=== PATIENT | female | born 1965 | race Two or more races ===

== ENCOUNTER 2022-05-25 18:43 | Emergency (ER) | payer MEDICAID ==
[2022-05-25] MEDS ORDERED: HYDROmorphone 1 MG/ML CARPUJECT IM STA (19:05)
--- NOTE | 2022-05-25 19:08 | ED Physician Documentation ---
PD HPI LOWER EXT INJURY - Stated complaint Stated Complaint: RT LEG INJ - Chief complaint Chief Complaint: Trauma Ext - History obtained from History obtained from: Patient - History of Present Illness PD HPI LOW EXT INJURY LOCATION: Lower leg, Ankle Type of injury: Fall Where injury occurred: Street Timing - onset: How many hours ago (1) Timing - duration: Hours (1) Timing - details: Abrupt onset Pain level max: 10 Pain level now: 10 Improved by: Rest Worsened by: Moving, Palpating Associated symptoms: No: Weakness, Numbness, Tingling, Swelling Recently seen: Not recently seen - Additional information Additional information: Patient is a 56-year-old female who presents to the emergency department with a right ankle injury. She states she was out walking her dog when she tripped and fell injuring the right lower leg. Worse with movement, nothing makes it better. She has noticed swelling to the area. There is no numbness or tingling. Review of Systems Constitutional: denies: Fever, Chills Respiratory: denies: Cough Skin: denies: Rash Musculoskeletal: denies: Neck pain, Back pain Neurologic: denies: Headache PD PAST MEDICAL HISTORY - Past Medical History Past Medical History: No - Past Surgical History Past Surgical History: No - Present Medications Home Medications: Ambulatory Orders Medication Instructions Recorded Confirmed Ondansetron Odt [Zofran] 4 mg TL Q6H PRN #10 tablet 05/25/22 Oxycodone HCl/Acetaminophen 1 - 2 each PO Q6H PRN #14 tablet 05/25/22 [Percocet 5-325 mg Tablet] - Allergies Allergies/Adverse Reactions: Allergies Allergy/AdvReac Type Severity Reaction Status Date / Time No Known Drug Allergies Allergy Verified 05/25/22 18:48 - Living Situation Living Situation: reports: With family Living Arrangement: reports: At home - Social History Does the pt smoke?: No Does the pt have substance abuse?: No - Family History Family history: reports: Non contributory PD ED PE NORMAL - Vitals Vital signs reviewed: Yes - General General: Alert and oriented X 3, No acute distress - HEENT HEENT: Atraumatic, PERRL, Moist mucous membranes - Neck Neck: Supple, no meningeal sign, No bony TTP - Cardiac Cardiac: RRR, Strong equal pulses - Respiratory Respiratory: No respiratory distress, Clear bilaterally - Abdomen Abdomen: Soft, Non tender, Non distended - Back Back: No spinal TTP - Derm Derm: Warm and dry - Extremities Extremities: Other (Tender to palpation over the distal right tibia. Swelling to the ankle and lower leg. Neurovascularly intact. Good distal pulses and brisk cap refill.) - Neuro Neuro: Alert and oriented X 3 - Psych Psych: Normal mood, Normal affect Results - Vitals Vitals: Vital Signs - 24 hr 05/25/22 05/25/22 18:48 20:09 Temperature 36.5 C 36.5 C Heart Rate 100 88 Respiratory 22 15 Rate Blood Pressure 150/100 H 141/89 H O2 Saturation 99 95 Oxygen O2 Source Room air - Rads (name of study) Right ankle x-ray Radiology: Final report received, EMP read contemporaneously, See rad report Procedures - Splint (location) R LE Splint applied by: Physician, Other (ortho PA, Yanira Tinoco) Type of splint: Fiberglass, Short leg, Posterior, Stirrup Other: Patient tolerated well, No complications, Neurovascular intact PD MEDICAL DECISION MAKING - ED course Complexity details: reviewed results, re-evaluated patient, considered differential, d/w patient ED course: 56-year-old female with a spiral fracture of the distal tibia as well as fractures of the lateral and posterior malleoli. Also has a fibular fracture. Placed in a short leg posterior splint with stirrups. Pain well controlled. Neurovascularly intact after splint application. Discussed the case with orthopedics, Dr. Neville, he will see in the office tomorrow or Wednesday and plan for operative repair. The splint application was assisted by jayshree Doyle. Patient counseled regarding signs and symptoms for which I believe and urgent re-evaluation would be necessary. Patient with good understanding of and agreement to plan and is comfortable going home at this time This document was made in part using voice recognition software. While efforts are made to proofread this document, sound alike and grammatical errors may occur. IMPRESSION: Spiral fracture at the distal tibia. Fracture at the lateral and posterior malleoli. Suspect Shepard A fracture. Departure - Departure Disposition: 01 Home, Self Care Clinical Impression: Tibia/fibula fracture Qualifiers: Encounter type: initial encounter Fracture type: closed Laterality: right Qualified Code(s): S82.201A - Unspecified fracture of shaft of right tibia, i nitial encounter for closed fracture Condition: Good Instructions: ED Fx Lower Ext Follow-Up: Han Neville MD [Provider Admit Priv/Credential] - Tomorrow Yanira Tinoco PA-C [Provider Admit Priv/Credential] - Tomorrow Prescriptions: Oxycodone HCl/Acetaminophen [Percocet 5-325 mg Tablet] 1 - 2 each PO Q6H PRN #14 tablet PRN Reason: pain Ondansetron Odt [Zofran] 4 mg TL Q6H PRN #10 tablet PRN Reason: Nausea / Vomiting Comments: Your medications were sent to [facility] in [place]. Please call the orthopedic office tomorrow at 8 AM for an appointment. Yanira saw you tonight, she is the orthopedics PA. I spoke with Dr. Neville as well. Tell the clinic they wanted you seen tomorrow. Please return if you worsen. Keep the leg elevated. You can apply ice as well. Return for numbness, tingling or any other new or worrisome changes. IMPRESSION: Spiral fracture at the distal tibia. Fracture at the lateral and posterior malleoli. Suspect Shepard A fracture. I am prescribing a short course of narcotic pain medication for you. These are potentially dangerous and addictive medications that should be used carefully. These medications may constipate you. Take an blit-tpz-etvyvsc stool softener (docusate) twice daily with plenty of water while taking these medications. If you go 24 hours without a bowel movement, take ejzi-pcz-tikssgf miralax, per package instructions. Do not drink or drive while taking these medications. If you received narcotic or sedating medications while in the emergency department, do not drive for 24 hours. Store this medication in a safe, secure place and out of reach of children. It is a violation of federal law to give or sell this medication to another person or to use in a manner other than prescribed. The ED will not refill narcotic prescriptions, including prescriptions lost or stolen. To dispose of unwanted medications: 1. [facility] [address] in [place] has a medication drop box. They accept prescription medications (in pill form) Wednesday through Wednesday 9:00 a.m. to 5:00 p.m. 2. The [facility] accepts prescription medications (in pill form only) for disposal year round. Call for more information. 3. Contact the [facility] for the next [facility] sponsored prescription drug collection event. , [phone], or [phone]; Discharge Date/Time: 05/25/22 20:26
[2022-05-25] MEDS ORDERED: HYDROmorphone 1 MG/ML CARPUJECT IVP STA (19:28)
[2022-05-25] MEDS ORDERED: KETOROLAC 30 MG/ML VIAL IVP STA (19:28)
--- NOTE | 2022-05-25 19:41 | XRAY Report ---
PROCEDURE: Ankle 3 View RT INDICATIONS: Trauma TECHNIQUE: 3 views of the ankle were acquired. COMPARISON: None. FINDINGS: Bones: Spiral fracture at the distal tibia with mild displacement. Fracture at the lateral malleolus with mild displacement. Posterior malleolus fracture. No dislocations. There is narrowing at the lat eral aspect of the ankle mortise. No suspicious bony lesions. Small plantar calcaneal spur. Soft tissues: Small tibiotalar joint effusion. IMPRESSION: Spiral fracture at the distal tibia. Fracture at the lateral and posterior malleoli. Suspect Shepard A fracture. Reviewed by: Dwight Zarate MD on 05/25/2022 7:39 PM PDT Approved by: Dwight Zarate MD on 05/25/2022 7:39 PM PDT Station ID: [id number]
[2022-05-25] MEDS ORDERED: ONDANSETRON 4 MG/2 ML VIAL IVP STA (19:54)
[2022-05-25] MEDS ORDERED: oxyCODONE/ACET 5/325 Prepack 4 PO STA (19:54)
[2022-05-25 20:11] VITALS: BP 141/89
== END 2022-05-25 20:26 | disposition home or self-care (01) ==
LOC: ED 18:43
DX: S82.201A Unspecified fracture of shaft of right tibia, initial encounter for closed fracture (principal); W01.0XXA Fall on same level from slipping, tripping and stumbling without subsequent striking against object, initial encounter; Y93.K1 Activity, walking an animal
CPT/HCPCS: 73610; 96372; 96374; 96375; 99282; 99283; J1170

== ENCOUNTER 2022-05-26 10:54 | Outpatient (CLI) | payer SELFPAY ==
[2022-05-26 11:13] LABS: HCT - HEMATOCRIT 41.8 % (37.0-47.0); HGB - HEMOGLOBIN 14.4 g/dL (12.0-16.0); MEAN CORPUSCULAR HGB CONC 34.4 g/dL (32.0-36.0); MEAN CORPUSCULAR VOLUME 87.1 fL (81.0-99.0); MEAN PLATELET VOLUME 12.2 fL (7.9-10.8); RED BLOOD COUNT 4.8 10^6/uL (4.20-5.40); RED CELL DISTRIBUTION WIDTH 13.5 % (12.0-15.0); WHITE BLOOD COUNT 11.7 x10^3/uL (4.8-10.8)
[2022-05-26 11:18] LABS: CALCIUM 9.3 mg/dL (8.5-10.3); CREATININE 0.7 mg/dL (0.4-1.0); POTASSIUM 4.3 mmol/L (3.5-5.0)
[2022-05-26 14:11] LABS: ESTIMATED AVERAGE GLUCOSE 143 mg/dL (70-100); HEMOGLOBIN A1c% 6.6 % (4.27-6.07)
== END 2022-05-26 10:55 | disposition home or self-care (01) ==
LOC: LAB 10:54
PROVIDERS: ATTEND Orthopaedic Surgery
DX: Z01.812 Encounter for preprocedural laboratory examination (principal); E11.9 Type 2 diabetes mellitus without complications
CPT/HCPCS: 36415; 80048; 83036; 85027

== ENCOUNTER 2022-05-27 06:10 | Day surgery (SDC) | payer MEDICAID ==
[2022-05-27] MEDS ORDERED: LACTATED RINGERS 1,000 ML IV ONE ×2 (06:17→13:31)
[2022-05-27] MEDS ORDERED: CELECOXIB 100 MG CAPSULE PO ONE (06:27)
[2022-05-27] MEDS ORDERED: CEFAZOLIN SODIUM IN 0.9 % NACL 2 GM/50 ML BAG IV ONE (06:27)
[2022-05-27] MEDS ORDERED: ACETAMINOPHEN 500 MG TABLET PO ONE (06:27)
[2022-05-27] MEDS ORDERED: LIDOCAINE-MPF 2% 5 ML VIAL ONE (07:12)
[2022-05-27] MEDS ORDERED: ROPIVACAINE 0.5% PF 20 ML AMPULE ONE (07:12)
[2022-05-27] MEDS ORDERED: PROPOFOL 200 MG/20 ML VIAL IVP ONE ×2 (07:12→13:26)
[2022-05-27] MEDS ORDERED: ONDANSETRON 4 MG/2 ML VIAL ONE (07:13)
[2022-05-27] MEDS ORDERED: DEXAMETHASONE 4 MG/ML VIAL ONE ×2 (07:13→08:48)
[2022-05-27] MEDS ORDERED: MIDAZOLAM 2 MG/2 ML VIAL ONE (07:16)
[2022-05-27] MEDS ORDERED: fentaNYL 100 MCG/2 ML VIAL ONE ×2 (07:16→08:14)
--- NOTE | 2022-05-27 07:20 | ANESTHESIA ---
Pre-Anesthesia VS, & Labs - Diagnosis displaced fracture, right tibia with lateral and posterior malleoli - Procedure ORIF right ankle, intramedullary angeline, tibia Vital Signs: Temp Pulse Resp BP Pulse Ox 37.2 C 85 16 169/101 H 94 05/27/22 06:28 05/27/22 06:28 05/27/22 06:28 05/27/22 06:28 05/27/22 06:28 Height: 5 ft 2 in Weight (kg): 100 kg Body Mass Index: 40.3 BMI Classification: Morbidly Obese - NPO >8 hours - Is Patient ?: No - Lab Results Current Lab Results: Laboratory Tests 05/27/22 06:56: POC Whole Bld Glucose 157 H Home Medications and Allergies Home Medications: Ambulatory Orders Lisinopril/Hydrochlorothiazide [Zestoretic 10-12.5 mg Tablet] 1 tab PO DAILY 05/26/22 metFORMIN [Glucophage] 1 tab PO DAILY 05/26/22 traMADol [Ultram] 1 tab PO PRN PRN 05/26/22 Lisinopril/Hydrochlorothiazide [Zestoretic 10-12.5 mg Tablet] 1 tab PO DAILY 05/26/22 metFORMIN [Glucophage] 1 tab PO DAILY 05/26/22 traMADol [Ultram] 1 tab PO PRN PRN 05/26/22 Allergies/Adverse Reactions: Allergies Allergy/AdvReac Type Severity Reaction Status Date / Time No Known Drug Allergies Allergy Verified 05/25/22 18:48 Anes History & Medical History - Anesthetic History Anesthesia Complications: reports: No previous complications Family history of Anesthesia Complications: Denies Family history of Malignant Hyperthermia: Denies - Medical History Cardiovascular: reports: Hypertension, High cholesterol, [place] Pulmonary: reports: None Gastrointestinal: reports: GERD Urinary: reports: None Neuro: reports: None Musculoskeletal: reports: None Endocrine/Autoimmune: reports: Type 2 diabetes Blood Disorders: reports: Anemia Skin: reports: None Smoking Status: Never smoker Psychosocial: reports: No issues indicated History of Cancer?: No - Surgical History General: reports: Cholecystectomy Exam General: Alert, Oriented x3, Cooperative, No acute distress Dental: Poor dentition Mouth Openin Fingerbreadth Mallampati classification: III Thyromental Distance: less than 4 cm Mental/Cognitive Status: Alert/Oriented X3, Normal for patient Plan Anesthesia Type: General, Popliteal Block, Adductor Block Regional Block: Per Surgeon's request for Post Op pain control Consent for Procedure(s) Verified and Reviewed: Yes Code Status: Attempt Resuscitation ASA classification: 3-Severe systemic disease Is this case an emergency?: No
[2022-05-27] MEDS ORDERED: BUPIVACAINE 0.5% PF 30 ML VIAL ONE (07:34)
[2022-05-27] MEDS ORDERED: BACITRACIN ZINC OINT 1 PACKET TOP ONE (07:34)
[2022-05-27] MEDS ORDERED: VANCOMYCIN 1 GM VIAL ONE (07:34)
[2022-05-27] MEDS ORDERED: LIDOCAINE 2%-EPI 1:100000 20 ML MDV ONE (07:35)
[2022-05-27] MEDS ORDERED: NALOXONE 0.4 MG/ML VIAL IVP PRN (08:48)
[2022-05-27] MEDS ORDERED: MORPHINE 2 MG/ML CARPUJECT IVP PRN (08:48)
[2022-05-27] MEDS ORDERED: ONDANSETRON 4 MG/2 ML VIAL IVP PRN (08:48)
[2022-05-27] MEDS ORDERED: fentaNYL 100 MCG/2 ML VIAL IVP PRN (08:48)
[2022-05-27] MEDS ORDERED: ATROPINE ABBOJECT 1 MG/10 ML SYRINGE IVP PRN (08:48)
[2022-05-27] MEDS ORDERED: ePHEDrine 50 MG/ML VIAL IVP PRN (08:48)
[2022-05-27] MEDS ORDERED: METOCLOPRAMIDE 10 MG/2 ML VIAL IVP PRN (08:48)
[2022-05-27] MEDS ORDERED: HYDROmorphone 0.5 MG/0.5 ML SYRINGE IVP PRN (08:48)
[2022-05-27] MEDS ORDERED: LACTATED RINGERS 1,000 ML IV SCH (09:00)
[2022-05-27] MEDS ORDERED: ROCURONIUM 50 MG/5 ML VIAL ONE ×3 (10:43→13:26)
[2022-05-27] MEDS ORDERED: ePHEDrine 50 MG/ML VIAL IVP ONE (12:29)
[2022-05-27] MEDS ORDERED: ROPIVACAINE 0.2% PF 10 ML VIAL ONE (12:59)
[2022-05-27] MEDS ORDERED: ceFAZolin 1 GM VIAL ONE (13:02)
[2022-05-27] MEDS ORDERED: HYDROmorphone 1 MG/ML CARPUJECT ONE (13:05)
[2022-05-27] MEDS ORDERED: SUGAMMADEX 200 MG/2 ML VIAL IVP ONE (13:07)
--- NOTE | 2022-05-27 13:13 | OPERATIVE REPORT ---
Operative Report - General Procedure Date: 05/27/22 Planned Procedure: Open reduction internal fixation right ankle and intramedullary rodding right tibia Pre-Op Diagnosis: Bimalleolar fracture right ankle with displaced distal tibia fracture right Procedure Performed: 1. Closed, intramedullary rodding right tibia with static locking; [employer] titanium 10 x 30 mm nail with 3 distal locking screws and 2 proximal locking screws 2. Open reduction internal fixation lateral malleolus with [employer] lateral malleolar locking plate, 2.7 millimeter screws Post Op Diagnosis: Same as preoperative diagnosis - Procedure Note Primary Surgeon: Han Neville MD Secondary Surgeon: Yanira Tinoco PAC, Dave Baldwin PAC Anesthesia Technique: General ET tube, Regional block Estimated Blood Loss (mL): 150 Indications: This is a 56-year-old woman with a history of a recent fall 2 days ago walking her dog, tripped and fell with isolated injury to right leg. She has a history of obesity, yeast, hypertension and a possible past myocardial infarction. She is accompanied by her daughters who speak [place] well and are bilingual; the patient is from [place] and has minimal understanding of [place]. She is on metformin for her diabetes and she seems to be fairly well controlled by history. Her exam showed tenderness to the right lower leg and ankle, intact skin, 5 mm abrasion over fracture site region, unstable fracture, neurovascular intact. Her x-rays were abnormal and showed a distal third right tibia fracture with a lateral malleolar fracture, low and displaced. The posterior malleolus had a subtle cortical fracture without displacement. Findings: Spiral fracture distal third right tibia, closed injury associated with nondisplaced posterior malleolar fracture and displaced lateral malleolar fracture right ankle. The fracture of the distal third of the right tibia was unstable. There is no sign of compartment syndrome and her compartments were soft. Complications: None - Other Other Information/Narrative: The patient was brought to the operating room. She had received an adductor canal and popliteal block by anesthesia. General endotracheal anesthesia was performed. A pneumatic tourniquet was applied to the proximal right thigh over cast padding. The right leg was placed on a bone foam to help flex the knee. A bump was placed beneath the right hip to facilitate leg internal rotation. The right lower extremity was prepped and draped in a sterile manner in the usual fashion. A C arm image intensifier was utilized intermittently throughout the procedure and was covered with a sterile drape. A timeout procedure was performed by the entire operating room team and all were in agreement. The lateral malleolar fracture which was closed and displaced was stabilized first. The skin incision was longitudinal beginning just below the tip of the lateral malleolus and extending it proximally in a longitudinal fashion. A limited subperiosteal dissection was performed. The fracture of the lateral malleolus was very unstable. The tip of the lateral malleolus was reduced, held with a small bone clamp and then an intramedullary K wire was used to stabilize the fracture. A 2.7 mm [employer]hew locking lateral malleolar plate was applied and secured with locking screws distally and nonlocking screws proximally to obtain good fixation, alignment on x-ray. This portion of the procedure was performed under tourniquet control with a thigh tourniquet, 54 minutes. The wound was irrigated well. The subcutaneous tissue was closed with 2 oh strata fix suture and the skin closed with 4-0 Monocryl subcuticular suture, Dermabond. The tibia fracture alignment was improved with fixation of the lateral malleolus. The fracture of the right tibia was reduced with longitudinal traction and a percutaneous bone clamp was used to stabilize the fracture in a anatomic position. An incision over the lateral aspect of the patella was made. This was a lateral parapatellar incision with incision through retinaculum but not synovium. This allowed for extra-articular entry point with the knee in a semiflexed position of about 40 to 50 degrees. The entry point was achieved using a bone all slightly lateral to the medial tibial spine. A flexible guidepin was then inserted down the canal, across the fracture into the distal tibia and very good alignment. The 12.5 mm reamer was utilized for and then progressing reaming with intramedullary reamers and half millimeter increments. The last reamer utilized was a 11.5 mm. The length of the guidepin was measured for determining the length of the angeline. A 10 mm x 30 mm length angeline with the assembled guide was gently impacted down the canal, concentric reduction achieved to allow passage of the angeline into the distal tibia. 3 distal locking screws were inserted using the C arm and a freehand technique. 2 of the locking screws were placed from medial to lateral and one of the locking screws were placed from anterior to posterior. Care was taken to avoid neurovascular bundle and tendon with the anterior screw. 2 proximal locking screws were inserted with the appropriate guides and C arm imaging. The fracture aligned extremely well and the internal fixation looked in good position. The fracture was stable. The wounds were irrigated. The subcutaneous tissue was closed with 2 oh strata fix. The skin was closed with uzair.She received 2 g of Ancef prior to incision and additional gram of Ancef completion of the procedure. Xeroform gauze cast padding and a well-padded short leg posterior fiberglass splint was applied to the right leg. There is no clinical deformity to the right leg. Rotation was checked and was found to be well aligned. A physician care assistant was medically necessary to help with prepping and draping, positioning, protection of vital structures, assistance during the procedure including wound closure, dressing and/or splinting.
[2022-05-27] MEDS ORDERED: oxyCODONE 5 MG TABLET PO PRN (13:25)
--- NOTE | 2022-05-27 15:15 | ANESTHESIA POST OP EVALUATION ---
Anesthesia Post Eval - Post Anesthesia Eval Vitals: Last Vital Signs Temp 36. C L 05/27/22 14:45 Pulse 71 05/27/22 15:00 Resp 12 05/27/22 15:00 BP 117/73 05/27/22 15:00 Pulse Ox 98 05/27/22 15:00 CV Function Including HR & BP: Stable Pain Control: Satisfactory Nausea & Vomiting: Negative Mental Status: Baseline Respiratory Status: Airway Patent Hydration Status: Satisfactory Anesthesia Complications: None
[2022-05-27 15:47] VITALS: BP 115/79
--- NOTE | 2022-05-27 16:28 | XRAY Report ---
PROCEDURE: OR C-Arm Procedure INDICATIONS: orif ankle TECHNIQUE: Fluoroscopic views COMPARISON: None. FINDINGS: Intraoperative fluoroscopic views of the tibia and fibula were performed. IMPRESSION: Intraoperative fluoroscopic views were obtained. Reviewed by: Alvaro Pizarro on 05/27/2022 4:26 PM JOSSE Approved by: Alvaro Pizarro on 05/27/2022 4:26 PM PDT Station ID: [id number]
== END 2022-05-27 20:32 | disposition home or self-care (01) ==
LOC: SDS 06:10 → MS2 16:06 → SDS 20:32
PROVIDERS: ATTEND Orthopaedic Surgery
DX: S82.841A Displaced bimalleolar fracture of right lower leg, initial encounter for closed fracture (principal); S82.241A Displaced spiral fracture of shaft of right tibia, initial encounter for closed fracture; W01.0XXA Fall on same level from slipping, tripping and stumbling without subsequent striking against object, initial encounter; Y93.K1 Activity, walking an animal; E11.9 Type 2 diabetes mellitus without complications; E66.01 Morbid (severe) obesity due to excess calories; Z68.41 Body mass index [BMI] 40.0-44.9, adult; Z79.84 Long term (current) use of oral hypoglycemic drugs; Z79.899 Other long term (current) drug therapy
CPT/HCPCS: 27759; 27827; A9270; C1713; C1769; J0690; J1170; J7120

== ENCOUNTER 2022-06-06 16:51 | Emergency (ER) | payer MEDICAID ==
[2022-06-06 17:36] LABS: GLUCOSE, URINE (UA) NEGATIVE (NEGATIVE); KETONES,URINE (UA) 40 mg/dL (NEGATIVE); LEUKOCYTE ESTERASE, URINE NEGATIVE (NEGATIVE); NITRITE,URINE NEGATIVE (NEGATIVE); OCCULT BLOOD,URINE NEGATIVE (NEGATIVE); PH,URINE 6.5 PH (5.0-7.5); PROTEIN,URINE NEGATIVE (NEGATIVE); UROBILINOGEN,URINE 1 (NORMAL) E.U./dL (NORMAL)
[2022-06-06] MEDS ORDERED: MINERAL OIL ENEMA 133 ML BOTTLE RC STA (17:43)
--- NOTE | 2022-06-06 17:43 | ED Physician Documentation ---
History of Present Illness - Stated complaint Stated Complaint: CONSTIPATION - Chief complaint Chief Complaint: Abd Pain - Additonal information Additional information: 56-year-old female presents emergency department for evaluation of constipation. Reportedly last had a bowel movement on 24 May. She underwent right lower leg orthopedic surgery on 27 May at an outlying hospital. She had been taking oxycodone for pain. The family noted the constipation about 3 days ago and begin giving her MiraLAX twice daily as well as Ex-Lax and Colace. Despite this that she has not had a bowel movement and has an exquisitely tender abdomen. No fevers no vomiting. Review of Systems Constitutional: denies: Fever, Chills Eyes: reports: Reviewed and negative Nose: reports: Reviewed and negative Throat: reports: Reviewed and negative Cardiac: reports: Reviewed and negative Respiratory: reports: Reviewed and negative GI: reports: Abdominal Pain, Constipation. denies: Nausea, Vomiting : reports: Reviewed and negative Skin: reports: Reviewed and negative PD PAST MEDICAL HISTORY - Past Medical History Past Medical History: Yes Cardiovascular: Hypertension, High cholesterol, [place] Respiratory: None Neuro: None Endocrine/Autoimmune: Type 2 diabetes GI: GERD : None Musculoskeletal: None Derm: None - Past Surgical History Past Surgical History: No General: Cholecystectomy - Present Medications Home Medications: Ambulatory Orders Medication Instructions Recorded Confirmed Ondansetron Odt [Zofran] 4 mg TL Q6H PRN #10 tablet 05/25/22 Oxycodone HCl/Acetaminophen 1 - 2 each PO Q6H PRN #14 tablet 05/25/22 [Percocet 5-325 mg Tablet] Lisinopril/Hydrochlorothiazide 1 tab PO DAILY 05/26/22 05/27/22 [Zestoretic 10-12.5 mg Tablet] metFORMIN [Glucophage] 1 tab PO DAILY 05/26/22 05/27/22 traMADol [Ultram] 1 tab PO PRN PRN 05/26/22 05/26/22 - Allergies Allergies/Adverse Reactions: Allergies Allergy/AdvReac Type Severity Reaction Status Date / Time No Known Drug Allergies Allergy Verified 06/06/22 16:58 - Social History Does the pt smoke?: No Smoking Status: Never smoker Does the pt drink ETOH?: No Does the pt have substance abuse?: No - Immunizations Immunizations are current?: Yes PD ED PE NORMAL - General General: Alert and oriented X 3, No acute distress, Well developed/nourished - Cardiac Cardiac: RRR, No murmur - Respiratory Respiratory: No respiratory distress, Clear bilaterally - Abdomen Abdomen: Normal bowel sounds, Soft. No: Non tender (Generally tender but nonperitoneal abdominal exam) - Rectal Rectal: Other (Chaperoned rectal exam reveals a large amount of very soft stool within the rectal vault. I administered a mineral enema) - Derm Derm: Normal color, Warm and dry, No rash - Extremities Extremities: No deformity, No tenderness to palpate, Normal ROM s pain - Neuro Neuro: Alert and oriented X 3, sludge filtration operator 2-12 intact Eye Opening: Spontaneous Motor: Obeys Commands Verbal: Oriented GCS Score: 15 Results - Vitals Vitals: Vital Signs - 24 hr 06/06/22 06/06/22 06/06/22 16:55 17:21 18:46 Temperature 36.0 C L 36.8 C Heart Rate 100 96 90 Respiratory 24 18 16 Rate Blood Pressure 145/88 H 156/84 H 150/88 H O2 Saturation 99 97 94 Oxygen O2 Source Room air - Labs Labs: Laboratory Tests 06/06/22 06/06/22 06/06/22 17:18 17:37 17:37 WBC 12.1 H RBC 3.93 L Hgb 11.3 L Hct 35.3 L MCV 89.8 MCH 28.8 MCHC 32.0 RDW 15.4 H Plt Count 354 MPV 11.8 H Neut # (Auto) 9.7 H Lymph # (Auto) 1.7 [place] # (Auto) 0.6 Eos # (Auto) 0.0 Baso # (Auto) 0.0 Absolute Nucleated RBC 0.05 Nucleated RBC % 0.4 Sodium 135 Potassium 4.1 Chloride 100 L Carbon Dioxide 23 Anion Gap 12.0 BUN 16 Creatinine 0.8 Estimated GFR (MDRD) 74 L Glucose 186 H Calcium 9.7 Total Bilirubin 1.1 H AST 28 ALT 32 Alkaline Phosphatase 83 Total Protein 7.4 Albumin 3.8 Globulin 3.6 Albumin/Globulin Ratio 1.1 Lipase 28 Urine Color YELLOW Urine Clarity CLEAR Urine pH 6.5 Ur Specific [place] 1.020 Urine Protein NEGATIVE Urine Glucose (UA) NEGATIVE Urine Ketones 40 H Urine Occult Blood NEGATIVE Urine Nitrite NEGATIVE Urine Bilirubin NEGATIVE Urine Urobilinogen 1 (NORMAL) Ur Leukocyte Esterase NEGATIVE Ur Microscopic Review NOT INDICATED Urine Culture Comments NOT INDICATED - Rads (name of study) CT abd Radiology: Final report received (Moderate size rectal stool ball. Colonic diverticula. Questionable mild focal colitis around the splenic flexure) PD MEDICAL DECISION MAKING - ED course Complexity details: reviewed results, re-evaluated patient, d/w patient ED course: 56-year-old female presents to the emergency department for evaluation of constipation. No bowel movement for 13 days. She has been taking oxycodone after recent right ankle surgery which is still casted. Initially on exam she had a large amount of soft fecal material in her rectum. I installed a mineral enema. Despite this that she failed to have a bowel movement thus she was transported to CT to rule out a more worrisome cause such as obstruction or perforation. The CT scan revealed a very large fecal ball in the lower rectum. However there were no findings of obstruction or perforation. I went to the bedside to discuss with the patient and her daughter that she likely needed to be manually disimpacted but by this time she had had a large defecation that I suspect was most of the fecal matter seen on CT. Patient is feeling markedly improved. Her bowel tones have improved. She is stable for discharge home. I am advising that they continue twice daily MiraLAX as long as she is taking the oxycodone. They can continue the Colace as well. Patient is continue to follow-up with her foot surgeon as already scheduled. Emergent worrisome return precautions were discussed Departure - Departure Disposition: 01 Home, Self Care Clinical Impression: Constipation by delayed colonic transit Condition: Stable Record reviewed to determine appropriate education?: Yes Instructions: ED Constipation Ch Comments: Jeannine was seen in the emergency department today because she had not had a bowel movement for about 13 days. Her constipation became severe after she was taking oxycodone to help manage the pain in her right leg after surgery. Typically the recommendation is that you take MiraLAX if you have not had a bowel movement for 1 day while on narcotics. Here in the emergency department her screening labs did not show any worrisome findings. The CT scan however did show a very large mass of stool within her rectum. I had initially given her a mineral enema but she failed to have an adequate bowel movement thus we proceeded with a CT. On repeat evaluation now it seems that she has had a very large and adequate bowel movement. I do encourage you to continue to give her the MiraLAX once or twice daily. You may need to do this as long as she is taking the oxycodone. Return to the emergency department for any other severe constipation, fevers, black or bloody stools, severe abdominal pain or worsening symptoms
[2022-06-06 17:46] LABS: BASOPHILS % (AUTO) 0.2 %; EOSINOPHILS % (AUTO) 0.2 %; HCT - HEMATOCRIT 35.3 % (37.0-47.0); HGB - HEMOGLOBIN 11.3 g/dL (12.0-16.0); LYMPHOCYTES # (AUTO) 1.7 10^3/uL (1.5-3.5); LYMPHOCYTES % (AUTO) 13.7 %; MEAN CORPUSCULAR HEMOGLOBIN 28.8 pg (27.0-31.0); MEAN CORPUSCULAR VOLUME 89.8 fL (81.0-99.0); MEAN PLATELET VOLUME 11.8 fL (7.9-10.8); MONOCYTES # (AUTO) 0.6 10^3/uL (0.0-1.0); NEUTROPHILS # (AUTO) 9.7 10^3/uL (1.5-6.6); NEUTROPHILS % (AUTO) 80.2 %; NRBC ABSOLUTE COUNT (AUTO) 0.05 x10^3/uL; NUCLEATED RED BLOOD CELLS AUTO 0.4 /100WBC; PLT - PLATELET COUNT 354 10^3/uL (130-450); RED BLOOD COUNT 3.93 10^6/uL (4.20-5.40); RED CELL DISTRIBUTION WIDTH 15.4 % (12.0-15.0); WHITE BLOOD COUNT 12.1 x10^3/uL (4.8-10.8)
[2022-06-06 17:47] LABS: CLARITY,URINE CLEAR (CLEAR)
[2022-06-06 17:48] LABS: BILIRUBIN,URINE NEGATIVE (NEGATIVE); ICTOTEST,URINE NEGATIVE
[2022-06-06 17:58] LABS: ALBUMIN 3.8 g/dL (3.2-5.5); ALBUMIN/GLOBULIN RATIO 1.1 (1.0-2.2); BILIRUBIN,TOTAL 1.1 mg/dL (0.2-1.0); CALCIUM 9.7 mg/dL (8.5-10.3); CREATININE 0.8 mg/dL (0.4-1.0); POTASSIUM 4.1 mmol/L (3.5-5.0); TOTAL PROTEIN 7.4 g/dL (6.7-8.2)
--- NOTE | 2022-06-06 18:56 | CT Report ---
PROCEDURE: Abdomen/Pelvis WO INDICATIONS: constiption TECHNIQUE: Noncontrast 5 mm thick sections acquired from the diaphragms to the symphysis. 5 mm coronal and sagi ttal reformats were then performed. For radiation dose reduction, the following was used: automated exposure control, adjustment of mA and/or kV according to patient size. COMPARISON: None. FINDINGS: Image quality: Excellent. ABDOMEN: Lung bases: Scattered scarring or atelectasis. Heart size is normal. Solid organs: Liver and spleen are normal in size. Gallbladder absent Pancreas is normal in contou rs. No adrenal nodules. Kidneys are normal in size, without hydronephrosis or nephrolithiasis. Peritoneum and bowel: Unenhanced bowel loops demonstrate normal wall thickness and caliber. No free fluid or air. Colonic diverticula. Moderate sized rectal stool ball. Colonic stool burden is modera te. Questionable pericolonic fat stranding around the splenic flexure. Nodes and vessels: No retroperitoneal or mesenteric adenopathy by size criteria. Aorta and inferior vena cava are normal in caliber. Miscellaneous: Small fat-containing umbilical hernia. PELVIS: Genitourinary: Bladder is underdistended. Miscellaneous: No inguinal hernias or adenopathy. Bones: No suspicious osseous lesion. Degenerative changes at the pubic symphysis. IMPRESSION: Moderate colorectal stool burden. There is a moderate-sized rectal stool ball. Colonic diverticula. Questionable mild focal colitis around the splenic flexure. Reviewed by: Dionicio George MD on 06/06/2022 6:55 PM PDT Approved by: Dionicio George MD on 06/06/2022 6:55 PM PDT Station ID: [id number]
[2022-06-06 19:47] VITALS: BP 147/76
== END 2022-06-06 19:46 | disposition home or self-care (01) ==
LOC: ED 16:51
DX: K59.01 Slow transit constipation (principal)
CPT/HCPCS: 36415; 74176; 80053; 81003; 83690; 85025; 99284; A9270; 81001; 87086

== ENCOUNTER 2022-09-15 08:00 | Outpatient (CLI) | payer SELFPAY ==
--- NOTE | 2022-09-15 18:01 | XRAY Report ---
PROCEDURE: Tib/Fib RT INDICATIONS: TIBIA FRACTURE AND RODDING TECHNIQUE: 2 views of the tibia and fibula were acquired. COMPARISON: 07/07/2022 FINDINGS: Bones: Additional remodeling of the proximal fibular and distal tibial fracture lines noted. The frac tures are supported by an intramedullary angeline and locking screws as well as distal fibular cortical si deplate. Ankle mortise is maintained. Soft tissues: No suspicious soft tissue calcifications or masses. IMPRESSION: Healing instrumented tibial and fibular fractures. Reviewed by: Pierre Parisi MD on 09/15/2022 5:00 PM [facility] Approved by: Pierre Parisi MD on 09/15/2022 5:00 PM [facility] Station ID: [id number]
== END 2022-09-15 23:59 | disposition home or self-care (01) ==
LOC: DI.WOS 08:00
PROVIDERS: ATTEND Orthopaedic Surgery
DX: S82.831D Other fracture of upper and lower end of right fibula, subsequent encounter for closed fracture with routine healing (principal); S82.841D Displaced bimalleolar fracture of right lower leg, subsequent encounter for closed fracture with routine healing